=== PATIENT | female | born 1980 | race Caucasian/White ===

== ENCOUNTER 2020-03-18 15:47 | Emergency (ER) | payer BC ==
[~2020-03-18] VITALS: Ht 22.9 cm; Wt 116.4 kg
[2020-03-18 17:12] VITALS: BP 116/74; PULSE 89; TEMP 97.8
== END 2020-03-18 17:12 | disposition home or self-care (01) ==
LOC: COL.ER 15:47
DX: U07.1 COVID-19 (principal)

== ENCOUNTER → 2021-11-09 | Outpatient (CLI) | payer BC ==
[2005-05-29 07:45] VITALS: PULSE 80; TEMP 97.3
== END ==
LOC: MC.RAD 08:09
DX: Z12.31 Encounter for screening mammogram for malignant neoplasm of breast (principal)